=== PATIENT | male | born 1965 | race Caucasian/White ===

== ENCOUNTER 2024-05-13 15:28 | Outpatient (REF) | payer OTHER, SELFPAY | END 2024-05-13 15:29 | disposition home or self-care (01) | LOC: HO.BBR 15:28 | PROVIDERS: Visit Provider Internal Medicine Gastroenterology | DX: Z13.89 Encounter for screening for other disorder (principal) ==

== ENCOUNTER 2024-05-20 14:59 | Outpatient (REF) | payer OTHER, SELFPAY | END 2024-05-20 15:00 | disposition home or self-care (01) | LOC: HO.BBR 14:59 | PROVIDERS: Visit Provider Internal Medicine Gastroenterology | DX: Z13.89 Encounter for screening for other disorder (principal) ==

== ENCOUNTER 2024-05-27 15:00 | Outpatient (REF) | payer OTHER, SELFPAY | END 2024-05-27 15:01 | disposition home or self-care (01) | LOC: HO.BBR 15:00 | PROVIDERS: Visit Provider Internal Medicine Gastroenterology | DX: Z13.89 Encounter for screening for other disorder (principal) ==

== ENCOUNTER 2024-06-05 14:53 | Outpatient (REF) | payer OTHER, SELFPAY | END 2024-06-05 14:54 | disposition home or self-care (01) | LOC: HO.BBR 14:53 | PROVIDERS: Visit Provider Internal Medicine Gastroenterology | DX: Z13.89 Encounter for screening for other disorder (principal) ==

== ENCOUNTER 2024-06-12 15:28 | Outpatient (REF) | payer OTHER, SELFPAY | END 2024-06-12 15:29 | disposition home or self-care (01) | LOC: HO.BBR 15:28 | PROVIDERS: Visit Provider Internal Medicine Gastroenterology | DX: Z13.89 Encounter for screening for other disorder (principal) ==

== ENCOUNTER 2024-06-19 15:04 | Outpatient (REF) | payer OTHER, SELFPAY | END 2024-06-19 15:05 | disposition home or self-care (01) | LOC: HO.BBR 15:04 | PROVIDERS: Visit Provider Internal Medicine Gastroenterology | DX: Z13.89 Encounter for screening for other disorder (principal) ==

== ENCOUNTER 2024-06-26 15:03 | Outpatient (REF) | payer OTHER, SELFPAY | END 2024-06-26 15:04 | disposition home or self-care (01) | LOC: HO.BBR 15:03 | PROVIDERS: Visit Provider Internal Medicine Gastroenterology | DX: Z13.89 Encounter for screening for other disorder (principal) ==

== ENCOUNTER 2024-07-09 14:59 | Outpatient (REF) | payer OTHER, SELFPAY | END 2024-07-09 15:00 | disposition home or self-care (01) | LOC: HO.BBR 14:59 | PROVIDERS: Visit Provider Internal Medicine Gastroenterology | DX: Z13.89 Encounter for screening for other disorder (principal) ==

== ENCOUNTER 2024-07-16 15:01 | Outpatient (REF) | payer OTHER, SELFPAY | END 2024-07-16 15:02 | disposition home or self-care (01) | LOC: HO.BBR 15:01 | PROVIDERS: Visit Provider Internal Medicine Gastroenterology | DX: Z13.89 Encounter for screening for other disorder (principal) ==

== ENCOUNTER 2024-07-23 15:03 | Outpatient (REF) | payer OTHER, SELFPAY | END 2024-07-23 15:04 | disposition home or self-care (01) | LOC: HO.BBR 15:03 | PROVIDERS: Visit Provider Internal Medicine Gastroenterology | DX: Z13.89 Encounter for screening for other disorder (principal) ==

== ENCOUNTER 2024-07-29 14:54 | Outpatient (REF) | payer OTHER, SELFPAY | END 2024-07-29 14:55 | disposition home or self-care (01) | LOC: HO.BBR 14:54 | PROVIDERS: Visit Provider Internal Medicine Gastroenterology | DX: Z13.89 Encounter for screening for other disorder (principal) ==

== ENCOUNTER 2024-08-05 14:57 | Outpatient (REF) | payer OTHER, SELFPAY ==
--- OUTSIDE RECORDS SUMMARY | 2024-08-05 19:13 | XMS_ITS | Encounter Summary ---
Author Organization [facility] Address [address] [place] [address] Care Team Providers Care Cfo Controller Name Role Phone Elvin Bailey MD Primary Care Provider [phone] Naif Orellana MD Primary Care Provider Tomy Padilla MD Primary Care Provider Natanael hinson Encounter Details Date Type Department Care Team Description 09/27/2005 [facility] Medical Records [address] [place] [address] Abstract, Provider Social History Tobacco Use Types Packs/Day Years Used Date Smoking Tobacco: Former Cigarettes 1.5 30 0 1982 - 06/09/2016 Smokeless Tobacco: Never Comments:on patch Alcohol Use Standard Drinks/Week Comments Yes 0 (1 standard drink = 0.6 oz pure alcohol) hx of abuse ;1/2 TO 1 pint of whisky/night Sex Assigned at Date Recorded Not on file documented as of this encounter Plan of Treatment Not on file documented as of this encounter Visit Diagnoses Not on filedocumented in this encounter Care Teams Cfo Controller Relationship Specialty Start Date End Date Elvin Bailey MD [address] [place] [address] PCP - General 09/16/10 02/05/24 Naif Orellana MD PCP - General 08/27/01 09/15/10 Tomy Mireles MD PCP - General Internal Medicine 02/06/24 documented as of this encounter
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
--- OUTSIDE RECORDS SUMMARY | 2024-08-05 19:13 | XMS_ITS | Encounter Summary ---
Author Organization [facility] Address [address] [place] [address] Care Team Providers Care Mortgage Clerk Name Role Phone Elvin Bailey MD Primary Care Provider [phone] Tomy Mireles MD Primary Care Provider Natanael hinson Encounter Details Date Type Department Care Team Description 02/07/2018 [facility] Medical Records [address] [place] [address] Josef Meraz, DEEPA Social History Tobacco Use Types Packs/Day Years [...] on filedocumented in this encounter Care Teams Mortgage Clerk Relationship Specialty Start Date End Date Elvin Bailey MD [address] [place] [address] PCP - General 09/16/10 02/05/24 Tomy Mireles MD [address] [place] [address] PCP - General Internal Medicine 02/06/24 documented as of this encounter
--- OUTSIDE RECORDS SUMMARY | 2024-08-05 19:13 | XMS_ITS | Encounter Summary ---
Author Organization [facility] Address [address] [place] [address] Care Team Providers Care Construction Safety Manager Name Role Phone Elvin Bailey MD Primary Care Provider [phone]- [phone] Tomy Mireles MD Primary Care Provider Natanael hinson Encounter Details Date Type Department Care Team Description 01/21/2011 [facility] Medical Records [address] [place] [address] Tomy Mireles MD Social History Tobacco Use Types Packs/Day Years Used Date Smoking Tobacco: Former Cigarettes Q uit: 07/10/2006 Comments:on patch Alcohol Use Standard Drinks/Week Comments Not Asked 0 (1 standard drink = 0.6 oz pur e alcohol) Sex Assigned at Date Recorded Not on file documented as of this encounter Plan of Treatment Not on file documented as of this encounter Visit Diagnoses Not on filedocumented in this encounter Care Teams Construction Safety Manager Relationship Specialty Start Date End Date Elvin Bailey MD [address] [place] [address] PCP - General 09/16/10 02/05/24 Tomy Mireles MD [address] [place] [address] PCP - General Internal Medicine 02/06/24 documented as of this encounter
--- OUTSIDE RECORDS SUMMARY | 2024-08-05 19:13 | XMS_ITS | Encounter Summary ---
Author Organization [facility] Address [address] [place] [address] Care Team Providers Care Measurement Superintendent Name Role Phone Elvin Bailey MD Primary Care Provider Naif Orellana MD Primary Care Provider Tomy Padilla MD Primary Care Provider Natanael hinson Encounter Details Date Type Department Care Team Description 04/14/2005 Orders Only Adult Medicine - [address] [address] Naif Orellana MD ROUTINE GENERAL MEDICAL EXAMINATION AT A HEALTH CARE FACILITY (Primary Dx) Social History Tobacco Use Types Packs/Day Years Used Date Smoking Tobacco: Never Assessed Sex Assigned at Date Recorded Not on file documented as of this encounter Plan of Treatment Scheduled Orders Name Type Priority Associated Diagnoses Orde r Schedule VENIPUNCTURE Lab Routine Routine General Medical Examination At A Health Care Facility Ordered: 04/14/2005 documented as of this encounter Procedures Procedure Name Priority Date/Time Associated Diagnosis Comments G LIPID PANEL Routine 04/14/2005 4:20 PM EDT Routine General Medical Examination At A Health Care Facility G COMPREHENSIVE METABOLIC PANEL Routine 04/14/2005 4:20 PM EDT Routine General Medical Examination At A Health Care Facility documented in this encounter Results * (ABNORMAL) LIPID PROFILE (04/14/2005 4:20 PM EDT) [facility] Cholesterol 204(H) 0 - 200 mg/dL [facility] TRIGLYCERIDES 838(H) 0 - 150 mg/dL [facility] Comment: RECHECKED If Triglyceride value is >= 500, LDL is not meaningful. HDL CHOLESTEROL 26(L) >40 mg/dL [facility] LDL CALCULATED 11 0 - 100 mg/dL [facility] TC-HDLC RATIO 7.9(H) 0 - 4.4 mg/dL [facility] 04/14/2005 4:20 PM EDT 04/14/2005 4:30 PM EDT Naif Orellana MD LAB [facility] * COMPREHENSIVE METABOLIC PANEL (04/14/2005 4:20 PM EDT) GLUCOSE 88 70 - 110 mg/dL [facility] Blood Urea Nitrogen 23 5 - 25 mg/dL [facility] CREAT 1.2 0.7 - 1.5 mg/dL [facility] GLOMERULAR FILTRATION RATE > 60 [facility] Comment: If patient is -[place], multiply result by 1.21 Chronic Kidney Disease: < 60 ml/min/1.73 square meters Kidney Failure: < 15 ml/min/1.73 square meters BUN/CREAT RATIO 19.2 6.0 - 20.0 G/dL [facility] NA 138 133 - 145 mEq/L [facility] K 4.7 3.5 - 5.2 mEq/L [facility] CL 104 96 - 108 mEq/L [facility] CARBON DIOXIDE (CO2) 29.0 21.0 - 32.0 mEq/L [facility] CALCIUM 10.0 8.5 - 10.5 mg/dL [facility] TOTAL PROTEIN (TP) 7.2 6.0 - 8.0 G/dL [facility] Albumin 4.4 3.2 - 5.6 G/dL [facility] GLOBULIN 2.8 1.9 - 4.4 G/dL [facility] A/G RATIO 1.6 1.1 - 2.3 [facility] BILIRUBIN TOTAL 0.5 0.0 - 1.4 mg/dL [facility] SGOT 19 10 - 42 U/L [facility] SGPT 24 10 - 60 U/L [facility] ALK PHOS 54 42 - 121 U/L [facility] 04/14/2005 4:20 PM EDT 04/14/2005 4:30 PM EDT Naif Orellana MD LAB [facility] documented in this encounter Visit Diagnoses Diagnosis Routine general medical examination at a health care facility- Primary documented in this encounter Care Teams Measurement Superintendent Relationship Specialty Start Date End Date Elvin Bailey MD [address] [place] [address] PCP - General 09/16/10 02/05/24 Naif Orellana MD PCP - General 08/27/01 09/15/10 Tomy Mireles MD PCP - General Internal Medicine 02/06/24 documented as of this encounter
--- OUTSIDE RECORDS SUMMARY | 2024-08-05 19:13 | XMS_ITS | Encounter Summary ---
Author Organization [facility] Address [address] [place] [address] Care Team Providers Care Trawl Net Maker Name Role Phone Elvin Bailey MD Primary Care Provider [phone] Tomy Mireles MD Primary Care Provider Natanael hinson Encounter Details Date Type Department Care Team Description 02/02/2015 [facility] Medical Records [address] [place] [address] Christofer Penny MD Social History Tobacco Use Types Packs/Day Years Used Date Smoking Tobacco: Every Day Cigarettes 1.5 30 Last attempted to quit: 07/10/2006 Smokeless Tobacco: Current Comments:on patch Alcohol Use Standard Drinks/Week Comments Yes 0 (1 standard drink = 0.6 oz pure alcohol) hx of abuse ; 3 per day currently x 4 mo. Sex Assigned at Date Recorded Not on file documented as of this encounter Plan of Treatment Not on file documented as of this encounter Visit Diagnoses Not on filedocumented in this encounter Care Teams Trawl Net Maker Relationship Specialty Start Date End Date Elvin Bailey MD [address] [place] [address] PCP - General 09/16/10 02/05/24 Tomy Mireles MD [address] [place] [address] PCP - General Internal Medicine 02/06/24 documented as of this encounter
== END 2024-08-05 14:58 | disposition home or self-care (01) ==
LOC: HO.BBR 14:57
PROVIDERS: Visit Provider Internal Medicine Gastroenterology
DX: Z13.89 Encounter for screening for other disorder (principal)

== ENCOUNTER 2024-08-12 15:07 | Outpatient (REF) | payer OTHER, SELFPAY ==
--- OUTSIDE RECORDS SUMMARY | 2024-08-12 16:38 | XMS_ITS | Clinical Summary ---
Author Organization [facility] it Address [address] [place] [address] Care Team Providers Care Meat Processor Name Role Phone Robi Bailey MD Primary Care Provider [phone] Allergies Active Allergy Reactions Criticality Noted Date [...] - [address] [place] [address] Italo Rodriguez MD 06/04/2024 Telephone Gastroenterology - [address] [facility] [address] [place] [address] Italo Rodriguez MD from Last 3 Months Immunizations Name Administration Dates Next Due Tdap Tetanus diptheria acell ular pertussis (Boostrix; Adacel) 7yo and older 04/29/2011 Surgical History Surgery Date Site/Laterality Comments ESOPHAGOGASTRODUODENOSCOPY 02/02/2015 PROCEDURE: [place] EGD TRANSORAL BIOPSY SINGLE/MULTIPLE; COMMENT: [facility] - [...] Date/Time Associated Diagnosis Comments EXTERNAL CLINICAL LAB 08/06/2024 EXTERNAL CLINICAL LAB 07/30/2024 EXTERNAL CLINICAL LAB [...] Health Maintenance Results * External clinical lab (08/06/2024) Only the most recent of12 resultswithin the time period is included. Provider [...] Recently Relevant to Health Maintenance Care Teams Meat Processor Relationship Specialty Start Date End Date Robi Bailey MD [facility] [place] [address] PCP - General 09/16/10
--- OUTSIDE RECORDS SUMMARY | 2024-08-12 16:38 | XMS_ITS | Encounter Summary ---
Author Organization [facility] Address [address] [place] [address] Care Team Providers Care Licensed Psychologist Manager Name Role Phone Elvin Bailey MD Primary Care Provider [phone] Tomy Mireles MD Primary Care Provider Natanael hinson Encounter Details Date Type Department Care Team Description 01/21/2011 [facility] Report Medical Records [address] [place] [address] Tomy Mireles MD Social History Tobacco Use [...] on filedocumented in this encounter Care Teams Licensed Psychologist Manager Relationship Specialty Start Date End Date Elvin Bailey MD [address] [place] [address] PCP - General 09/16/10 02/05/24 Tomy Mireles MD [address] [place] [address] PCP - General Internal Medicine 02/06/24 documented as of this encounter
== END 2024-08-12 15:08 | disposition home or self-care (01) ==
LOC: HO.BBR 15:07
PROVIDERS: Visit Provider Internal Medicine Gastroenterology
DX: Z13.89 Encounter for screening for other disorder (principal)

== ENCOUNTER 2024-08-19 15:14 | Outpatient (REF) | payer OTHER, SELFPAY ==
--- OUTSIDE RECORDS SUMMARY | 2024-08-19 16:18 | XMS_ITS | Clinical Summary ---
Author Organization [facility] it Address [address] [place] [address] Care Team Providers Care Cloth Printer Helper Name Role Phone Robi Bailey MD Primary Care Provider Allergies Active Allergy Reactions Criticality Noted Date Comments Hydrocodone-Acetaminophen 03/03/2009 Medications buprenorphine HCl/naloxone HCl (SUBOXONE SL) Place 8 mg under the tongue daily. NALOXONE IS 2 MG Active Active Problems Problem Noted Date Diagnosed Date Erectile dysfunction 11/01/2014 Low testosterone 10/23/2014 Overview (07/22/2024): / Abdominal pain 08/01/2011 Overview (07/22/2024): IMO Update Fall 2015 GERD (gastroesophageal reflux disease) 2 Overview (07/22/2024): EGD 01/21. duodenitis Rhinitis 04/30/2011 ETOH abuse 01/24/2011 Narcotic dependence 01/24/2011 Overview (07/22/2024): Buprenorphine (Tomy Lakritz) 2010 Crohn disease 02/13/2008 Overview (07/22/2024): Based on CT. Never returned for colonoscopy. Colonoscopy 2014. Diverticulosis only. Encounters Date Type Department Care Team Description 06/12/2024 Telephone Gastroenterology - [address] [facility] [address] [place] [address] Italo Rodriguez MD 06/04/2024 Telephone Gastroenterology - [address] [facility] [address] [place] [address] Italo Rodriguez MD from Last 3 Months Immunizations Name Administration Dates Next Due Tdap Tetanus diptheria acell ular pertussis (Boostrix; Adacel) 7yo and older 04/29/2011 Surgical History Surgery Date Site/Laterality Comments ESOPHAGOGASTRODUODENOSCOPY 02/02/2015 PROCEDURE: [place] EGD TRANSORAL BIOPSY SINGLE/MULTIPLE; COMMENT: [facility] - [...] Recorded Sex Assigned at Not on file Legal Sex Male 1:02 PM EST Gender Identity Not on file Sexual Orientation [...] Date/Time Associated Diagnosis Comments EXTERNAL CLINICAL LAB 2024 EXTERNAL CLINICAL LAB 08/06/2024 EXTERNAL CLINICAL LAB 07/30/2024 EXTERNAL CLINICAL LAB 07/17/2024 EXTERNAL CLINICAL LAB 07/11/2024 EXTERNAL CLINICAL LAB 07/10/2024 EXTERNAL CLINICAL LAB 06/27/2024 EXTERNAL CLINICAL LAB 06/20/2024 EXTERNAL CLINICAL LAB 06/13/2024 EXTERNAL CLINICAL LAB 06/06/2024 EXTERNAL CLINICAL LAB 05/27/2024 EXTERNAL CLINICAL LAB 05/21/2024 [facility] COLONOSCOPY Routine 02/02/2015 LIPID PANEL Routine 04/14/2005 from Last 3 Months or Most Recently Relevant to Health Maintenance Results * External clinical lab (2024) Only the most recent of12 resultswithin the time period is included. us Provider [facility] LAB BLOOD ORDERABLES Fin al Result * Hm Colonoscopy (02/02/2015) Pathologist [facility] HM Colonoscopy abstracted, no interpretation Anatomical Region Laterality Modality Other us Historical Provider HEALTH MAINTENANCE Final Result * (ABNORMAL) Lipid panel (04/14/2005) Pathologist [facility] LDL/HDL Ratio 8(A) 0 - 4 Triglycerides 838(A) 0 - 150 mg/dL Cholesterol 204(A) 0 - 200 mg/dL HDL 26(A) >=40 mg/dL LDL Cholesterol 11 0 - 100 mg/dL Blood Venous blood specimen / Unknown us Historical Provider LAB BLOOD ORDERABLES Mabel l Result from Last 3 Months or Most Recently Relevant to Health Maintenance Care Teams Cloth Printer Helper Relationship Specialty Start Date End Date Robi Bailey MD [address] [place] [address] PCP - General 09/16/10
--- OUTSIDE RECORDS SUMMARY | 2024-08-19 16:18 | XMS_ITS | Encounter Summary ---
Author Organization [facility] Address [address] [place] [address] Care Team Providers Care Partition Making Machine Operator Name Role Phone Elvin Bailey MD Primary Care Provider [phone] Tomy Mireles MD Primary Care Provider Natanael hinson Encounter Details Date Type Department Care Team Description 02/07/2018 [facility] Medical Records [address] [place] [address] Josef Meraz, DEEPA Social History Tobacco Use [...] on filedocumented in this encounter Care Teams Partition Making Machine Operator Relationship Specialty Start Date End Date Elvin Bailey MD [address] [place] [address] PCP - General 09/16/10 02/05/24 Tomy Mireles MD [address] [place] [address] PCP - General Internal Medicine 02/06/24 documented as of this encounter
--- OUTSIDE RECORDS SUMMARY | 2024-08-19 16:18 | XMS_ITS | Encounter Summary ---
Author Organization [facility] Address [address] [place] [address] Care Team Providers Care S[employer] Business Analyst Name Role Phone Elvin Bailey MD Primary Care Provider [phone] Naif Orellana MD Primary Care Provider Tomy Padilla MD Primary Care Provider Natanael hinson Encounter Details Date Type Department Care Team Description 09/27/2005 [facility] Medical Records [address] [place] [address] Abstract, Provider Social History Tobacco Use Types [...] on filedocumented in this encounter Care Teams S[employer] Business Analyst Relationship Specialty Start Date End Date Elvin Bailey MD [address] [place] [address] PCP - General 09/16/10 02/05/24 Naif Orellana MD PCP - General 08/27/01 09/15/10 Tomy Mireles MD PCP - General Internal Medicine 02/06/24 documented as of this encounter
--- OUTSIDE RECORDS SUMMARY | 2024-08-19 16:18 | XMS_ITS | Encounter Summary ---
Author Organization [facility] Address [address] [place] [address] Care Team Providers Care Toxics Program Officer Name Role Phone Elvin Bailey MD Primary Care Provider [phone] Tomy Mireles MD Primary Care Provider Natanael hinson Reason for Visit * Reason Onset Date Comments Special Procedure 10/03/2011 [facility] Pretest Encounter Details Date Type Department Care Team Description 10/03/2011 Telephone Gastroenterology - [address] [address] Inocente Puente MD Special Procedure ([facility] Pretest) Social History Tobacco Use Types Packs/Day Years Used Date Smoking Tobacco: Former Cigarettes 1.5 30 Q uit: 07/10/2006 Smokeless Tobacco: Former Comments:on patch Alcohol Use Standard Drinks/Week Comments Yes 0 (1 standard drink = 0.6 oz pur e alcohol) hx of abuse ; 4+ per day Sex Assigned at Date Recorded Not on file documented as of this encounter Miscellaneous Notes * Telephone Encounter - Barbara Antoine - 10/03/2011 11:34 AM EDT Patient no showed his pre-test at [facility] today. CN booked for 10/19/11. Message left at home number for pt to call to find out when he can pretest and if he's still having procedure. documented in this encounter Plan of Treatment Not on file documented as of this encounter Visit Diagnoses Not on filedocumented in this encounter Care Teams Toxics Program Officer Relationship Specialty Start Date End Date Elvin Bailey MD [address] [place] [address] PCP - General 09/16/10 02/05/24 Tomy Mireles MD [address] [place] [address] PCP - General Internal Medicine 02/06/24 documented as of this encounter
--- OUTSIDE RECORDS SUMMARY | 2024-08-19 16:18 | XMS_ITS | Clinical Summary ---
Author Organization [facility] Address [address] [place] [address] Care Team Providers Care Gang Boss Name Role Phone Tomy Mireles MD Primary Care Provider Natanael hinson Allergies Active Allergy Reactions Severity Noted Date Comments Hydrocodone-Acetaminophen 03/03/2009 Medications Medication Sig Dispensed Refills Start Date End Date Status Buprenorphine HCl-Naloxone HCl (SUBOXONE SL) Place 8 mg under the tongue daily. NALOXONE IS 2 MG 0 Active wrlmlirm-lwxujznkp-rl drocortisone (CORTISPORIN) 3.5-68085-[address] 4 Drops into both ears 4 times daily for 10 days. Tilt head so ear to be treated points towards the ceiling. 10 mL 1 08/23/2021 Active Active Problems Problem Noted Date Erectile dysfunction 11/01/2014 Low testosterone 10/23/2014 Overview: 2/15 Abdominal pain 08/01/2011 Overview: IMO Update Fall 2015 GERD (gastroesophageal reflux disease) 0 08/01/2011 Overview: EGD 01/21. duodenitis Family hx colonic polyps 08/01/2011 Overview: Mom 68 Colonoscopy 01/21. Diverticulosis. Otherwise normal Rhinitis 04/30/2011 Family history of melanoma 04/30/2011 Overview: Dad with melanoma Narcotic dependence 01/24/2011 Overview: Buprenorphine (Tomy Mireles) 2010 ETOH abuse 01/24/2011 Suspected Crohn Disease 02/13/2008 Overview: Based on CT. Never returned for colonoscopy. Colonoscopy 2014. Diverticulosis only. Immunizations Name Administration Dates Next Due Tdap 04/29/2011 Family History Medical History Relation Name Comments Colon Polyps Mother Cancer of the Colon Uncle 2 Relation Name Status Comments Father melanoma Grandparent [...] Assigned at Date Recorded Not on file Last Filed Vital Signs Vital Sign Reading Time Taken Comments Blood Pressure 131/50 08/23/2021 11:17 AM EST Pulse 80 08/23/2021 11:17 AM EST Temperature 36.7 ??C (98.1 ??F) 08/23/2021 11:[address] Respiratory Rate 14 01/31/2018 2:40 PM EDT Oxygen Saturation 98% 08/23/2021 11:17 AM EST Inhaled Oxygen Concentration - - Weight 77.4 kg (170 lb 9.6 oz) 01/31/2018 2:40 P M EDT Height 175.3 cm (5' 9 ) 01/31/2018 2:40 PM EDT Body Mass Index 25.19 01/31/2018 2:40 PM EDT Plan of Treatment Health Maintenance Due Date Last Done Comments Covid-19 Vaccine (#1) 02[birth year]10/1966 HEPATITIS C SCREENING 1984 BASELINE HEALTH EXAM 40-64 04/29/201304/29, 04/14/2005, 04/14/2005 CHOLESTEROL SCREENING 04/29/2016 04/29/2011, 005 SHINGLES VACCINE (1 of 2) 2016 DTAP/TDAP/TD (2 - Td or Tdap) 04/29/2021 04/29/2011 INFLUENZA (#1) 2024 BMI CHECK/ADVISE 07/10/2024 COLON CANCER SCREENING 02/02/2025 02/02/2015 PNEUMOCOCCAL VACCINE FOR HIG H RISK PATIENTS (#1) 2031 Care Teams Gang Boss Relationship Specialty Start Date End Date Tomy Mireles MD PCP - General Internal Medicine 02/06/24
--- OUTSIDE RECORDS SUMMARY | 2024-08-19 16:18 | XMS_ITS | Encounter Summary ---
Author Organization [facility] Address [address] [place] [address] Care Team Providers Care Accounts Receivable Analyst Name Role Phone Elvin Bailey MD Primary Care Provider [phone] Tomy Mireles MD Primary Care Provider Natanael hinson Encounter Details Date Type Department Care Team Description 02/02/2015 Research Scientist Report Medical Records [address] [place] [address] Christofer Penny MD Social History Tobacco Use [...] on filedocumented in this encounter Care Teams Accounts Receivable Analyst Relationship Specialty Start Date End Date Elvin Bailey MD [address] [place] [address] PCP - General 09/16/10 02/05/24 Tomy Mireles MD [address] [place] [address] PCP - General Internal Medicine 02/06/24 documented as of this encounter
== END 2024-08-19 15:15 | disposition home or self-care (01) ==
LOC: HO.BBR 15:14
PROVIDERS: Visit Provider Internal Medicine Gastroenterology
DX: Z13.89 Encounter for screening for other disorder (principal)

== ENCOUNTER 2024-09-03 14:58 | Outpatient (REF) | payer OTHER, SELFPAY ==
--- OUTSIDE RECORDS SUMMARY | 2024-09-03 18:46 | XMS_ITS | Clinical Summary ---
Author Organization [facility] Address [address] [place] [address] Care Team Providers Care Medical Sales Name Role Phone Tomy Mireles MD Primary Care Provider Natanael hinson Allergies Active Allergy Reactions Severity Noted Date Comments Hydrocodone-Acetaminophen 03/03/2009 Medications Medication Sig Dispensed Refills Start Date End Date Status Buprenorphine HCl-Naloxone HCl (SUBOXONE SL) Place 8 mg under the tongue daily. NALOXONE IS 2 MG 0 Active timmegyp-qfzmlvhhc-my drocortisone (CORTISPORIN) 3.5-84157-[address] 4 Drops into both [...] H RISK PATIENTS (#1) 2031 Care Teams Medical Sales Relationship Specialty Start Date End Date Tomy Mireles MD PCP - General Internal Medicine 02/06/24
--- OUTSIDE RECORDS SUMMARY | 2024-09-03 18:46 | XMS_ITS | Encounter Summary ---
Author Organization [facility] Address [address] [place] [address] Care Team Providers Care Home Care Aide Name Role Phone Elvin Bailey MD Primary Care Provider [phone] Tomy Mierles MD Primary Care Provider Natanael hinson Encounter Details Date Type Department Care Team Description 02/02/2015 Railroad Repairer Report Medical Records [address] [place] [address] Christofer Penny MD Social History Tobacco Use [...] on filedocumented in this encounter Care Teams Home Care Aide Relationship Specialty Start Date End Date Elvin Bailey MD [address] [place] [address] PCP - General 09/16/10 02/05/24 Tomy Mireles MD [address] [place] [address] PCP - General Internal Medicine 02/06/24 documented as of this encounter
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
--- OUTSIDE RECORDS SUMMARY | 2024-09-03 18:46 | XMS_ITS | Encounter Summary ---
Author Organization [facility] Address [address] [place] [address] Care Team Providers Care Grinder Setup Operator Name Role Phone Elvin Bailey MD Primary Care Provider [phone] Tomy Mireles MD Primary Care Provider Natanael hinson Reason for Visit * Reason Onset Date Comments Special Procedure 10/03/2011 [facility] Pretest Encounter Details Date Type Department Care Team Description 10/03/2011 Telephone Gastroenterology - [address] [address] Inocente Puente MD Special Procedure ([facility] Pretest) Social History Tobacco Use Types Packs/Day [...] EDT Patient no showed his pre-test at [facility] today. CN booked for 10/19/11. Message left at home number for pt to call to find out when he can pretest and if he's still having procedure. documented in this encounter Plan of Treatment Not on file documented as of this encounter Visit Diagnoses Not on filedocumented in this encounter Care Teams Grinder Setup Operator Relationship Specialty Start Date End Date Elvin Bailey MD [address] [place] [address] PCP - General 09/16/10 02/05/24 Tomy Mireles MD [address] [place] [address] PCP - General Internal Medicine 02/06/24 documented as of this encounter
--- OUTSIDE RECORDS SUMMARY | 2024-09-03 18:46 | XMS_ITS | Encounter Summary ---
Author Organization [facility] Address [address] [place] [address] Care Team Providers Care Title Curator Name Role Phone Elvin Bailey MD Primary Care Provider [phone]- [phone] Tomy Mireles MD Primary Care Provider Natanael hinson Encounter Details Date Type Department Care Team Description 01/21/2011 Logistics Operations Director Report Medical Records [address] [place] [address] Tomy Mireles MD Social History Tobacco Use [...] on filedocumented in this encounter Care Teams Title Curator Relationship Specialty Start Date End Date Elvin Bailey MD [address] [place] [address] PCP - General 09/16/10 02/05/24 Tomy Mireles MD [address] [place] [address] PCP - General Internal Medicine 02/06/24 documented as of this encounter
--- OUTSIDE RECORDS SUMMARY | 2024-09-03 18:46 | XMS_ITS | Encounter Summary ---
Author Organization [facility] Address [address] [place] [address] Care Team Providers Care Sewer And Drain Technician Name Role Phone Elvin Bailey MD Primary Care Provider [phone] Naif Orlelana MD Primary Care Provider Tomy Padilla MD Primary Care Provider Natanael hinson Encounter Details Date Type Department Care Team Description 09/27/2005 [facility] Medical Records [address] [place] [address] Abstract, Provider Social History Tobacco Use Types [...] on filedocumented in this encounter Care Teams Sewer And Drain Technician Relationship Specialty Start Date End Date Elvin Bailey MD [address] [place] [address] PCP - General 09/16/10 02/05/24 Naif Orellana MD PCP - General 08/27/01 09/15/10 Tomy Mireles MD PCP - General Internal Medicine 02/06/24 documented as of this encounter
== END 2024-09-03 14:59 | disposition home or self-care (01) ==
LOC: HO.BBR 14:58
PROVIDERS: Visit Provider Internal Medicine Gastroenterology
DX: Z13.89 Encounter for screening for other disorder (principal)